=== PATIENT | female | born 1975 | race Caucasian/White ===

== ENCOUNTER 2021-03-29 10:22 | Emergency (ER) | payer BC ==
[2021-03-29 10:30] VITALS: TEMP 98.1; BMI 25.8
[2021-03-29 12:22] LABS: BASO % 0.5 % (0-2.0); EOS % 0.3 % (0-4.5); HEMATOCRIT 32.9 % (32.4-45.2); HEMOGLOBIN 11.4 GM/dL (10.7-15.3); LYMPH % 20.8 % (8-40); MCH 37.5 pg (25.7-33.7); MCHC 34.7 g/dl (32.0-36.0); MEAN CELL VOLUME 108.3 fl (80-96); MEAN PLT VOLUME 7.8 fl (7.5-11.1); MONO % 6.3 % (3.8-10.2); NEUT % 72.1 % (42.8-82.8); PLATELET COUNT 213 K/MM3 (134-434); RBC 3.04 M/mm3 (3.60-5.2); RDW 15.3 % (11.6-15.6); WHITE BLOOD COUNT 8.5 K/mm3 (4.0-10.0)
[2021-03-29 12:30] LABS: INR 1.02 (0.83-1.09); PROTHROMBIN TIME (PATIENT) 12.3 SEC (9.7-13.0)
[2021-03-29 12:33] LABS: ACTIVATED PTT 30.1 SECONDS (25.2-36.5)
[2021-03-29 12:42] LABS: BLOOD UREA NITROGEN 14.9 mg/dL (7-18); CALCIUM 7.8 mg/dL (8.5-10.1)
[2021-03-29 12:45] LABS: CREATININE 0.6 mg/dL (0.55-1.3)
[2021-03-29 12:47] LABS: BILIRUBIN,TOTAL 1.1 mg/dL (0.2-1); TOT PROT 6.4 g/dl (6.4-8.2)
[2021-03-29] MEDS ORDERED: LACTATED RINGERS SOLUTION 1000 ML INFUS.BAG IV ONE (12:52)
[2021-03-29 13:32] LABS: ANISOCYTOSIS 1+; MACROCYTOSIS 1+; PLATELET ESTIMATE NORMAL
[2021-03-29] MEDS ORDERED: ACETAMINOPHEN 325 MG TABLET (FP) PO ONE (16:01)
[2021-03-29] MEDS ORDERED: CLINDAMYCIN HCL 300 MG CAPSULE PO ONE (16:11)
[2021-03-29] MEDS ORDERED: CLINDAMYCIN HCL 150 MG CAPSULE (FP) ONE (16:23)
[2021-03-29] MEDS ORDERED: ACETAMINOPHEN 325 MG TABLET (FP) ONE (16:23)
[2021-03-29] MEDS ORDERED: chlordiazePOXIDE HCL 25 MG CAPSULE PO ONE (17:26)
[2021-03-29 17:37] VITALS: BP 137/98
[2021-03-29] MEDS ORDERED: chlordiazePOXIDE HCL 25 MG CAPSULE ONE (17:39)
[2021-03-29 18:21] VITALS: PULSE 106
== END 2021-03-29 18:40 | disposition home or self-care (01) ==
LOC: JER 10:22
DX: L02.212 Cutaneous abscess of back [any part, except buttock and flank] (principal)
CPT/HCPCS: 36415; 71260-TC; 74177-TC; 80053; 80307; 84703; 85025; 85610; 85730; 86850; 86900; 86901; 99285-25; Q9967

== ENCOUNTER 2021-07-08 12:28 | Emergency (ER) | payer BC ==
[2021-07-09 13:10] LABS: SARS-CoV-2 NAA Not Detected (Not Detected)
== END 2021-07-08 14:24 | disposition home or self-care (01) ==
LOC: JVIRT 12:28
DX: Z11.52 Encounter for screening for COVID-19 (principal)
CPT/HCPCS: C9803; G2251-GT; U0003; U0005

== ENCOUNTER 2022-05-06 09:58 | Day surgery (SDC) | payer BC ==
[2022-05-02 15:17] VITALS: BMI 27.4
[2022-05-06] MEDS ORDERED: PROPOFOL 20 ML ONE ×4 (12:25)
[2022-05-06 12:39] VITALS: PULSE 78; TEMP 97.5
[2022-05-06 12:48] VITALS: BP 137/86
== END 2022-05-06 12:59 | disposition home or self-care (01) ==
LOC: FASU-ENDO 09:58
PROVIDERS: ATTEND Internal Medicine Gastroenterology
PROC: 0DB68ZX Excision of Stomach, Via Natural or Artificial Opening Endoscopic, Diagnostic (ICD-10-PCS; 2022-05-06)
PROC: 0DB48ZX Excision of Esophagogastric Junction, Via Natural or Artificial Opening Endoscopic, Diagnostic (ICD-10-PCS; 2022-05-06)
PROC: 0DB98ZX Excision of Duodenum, Via Natural or Artificial Opening Endoscopic, Diagnostic (ICD-10-PCS; principal; 2022-05-06 12:19)
DX: D64.9 Anemia, unspecified (principal); K29.50 Unspecified chronic gastritis without bleeding; K20.90 Esophagitis, unspecified without bleeding
CPT/HCPCS: 84703; 88305-TC; 88342-TC

== ENCOUNTER 2022-07-11 10:21 | Day surgery (SDC) | payer BC ==
[2022-07-07 12:01] VITALS: BMI 28.2
[2022-07-11] MEDS ORDERED: PROPOFOL 80 ML ONE (12:19)
[2022-07-11 12:51] VITALS: RESP 16; TEMP 98
[2022-07-11 13:13] VITALS: BP 109/82; PULSE 80
== END 2022-07-11 13:27 | disposition home or self-care (01) ==
LOC: FASU-ENDO 10:21
PROVIDERS: ATTEND Internal Medicine Gastroenterology
PROC: 0DB48ZX Excision of Esophagogastric Junction, Via Natural or Artificial Opening Endoscopic, Diagnostic (ICD-10-PCS; 2022-07-11)
PROC: 0DB78ZX Excision of Stomach, Pylorus, Via Natural or Artificial Opening Endoscopic, Diagnostic (ICD-10-PCS; 2022-07-11)
PROC: 0DB28ZX Excision of Middle Esophagus, Via Natural or Artificial Opening Endoscopic, Diagnostic (ICD-10-PCS; 2022-07-11)
PROC: 0DB38ZX Excision of Lower Esophagus, Via Natural or Artificial Opening Endoscopic, Diagnostic (ICD-10-PCS; 2022-07-11)
PROC: 0DJD8ZZ Inspection of Lower Intestinal Tract, Via Natural or Artificial Opening Endoscopic (ICD-10-PCS; principal; 2022-07-11 12:08)
DX: Z12.11 Encounter for screening for malignant neoplasm of colon (principal); K64.1 Second degree hemorrhoids; K64.5 Perianal venous thrombosis; K64.8 Other hemorrhoids; K22.70 Barrett's esophagus without dysplasia; K29.70 Gastritis, unspecified, without bleeding
CPT/HCPCS: 84703; 88305-TC; 88342-TC